=== PATIENT | female | born 1935 | race Hispanic/Latino ===

== ENCOUNTER 2017-05-17 14:35 | Emergency (ER) | payer OTHER ==
[2017-05-17 15:47] LABS: BASOPHILS % (AUTO) 0.6 % (0.0-5.0); EOSINOPHILS % (AUTO) 1.7 % (0.0-8.0); HEMATOCRIT 41.9 % (36-48); LYMPHOCYTES % (AUTO) 35.8 % (21.0-51.0); MEAN CORPUSCULAR HEMOGLOBIN 30.7 pg (27.0-33.0); MEAN CORPUSCULAR HGB CONC 34.1 g/dL (32.0-36.0); MEAN CORPUSCULAR VOLUME 90.1 fL (79-99); NEUTROPHILS % (AUTO) 51.9 % (40.0-77.0); PLATELET COUNT (AUTO) 205 K/uL (130-400); RED BLOOD CELL COUNT(AUTO) 4.65 MIL/uL (4.00-5.50); RED CELL DISTRIBUTION WIDTH 12.7 % (11.0-15.5)
[2017-05-17 15:56] LABS: CREATININE 0.7 mg/dL (0.5-1.5); INR 0.93 (0.85-1.15); PARTIAL THROMBOPLASTIN TIME 26.2 SEC (26.3-35.5); POTASSIUM 3.9 mmol/L (3.5-5.1); PROTHROMBIN TIME 9.8 SEC (9.6-11.6)
[2017-05-17 16:00] LABS: ALBUMIN 3.9 g/dL (3.5-5.0); BILIRUBIN,TOTAL 0.4 mg/dL (0.2-1.0); TOTAL PROTEIN, SERUM 7.6 g/dL (6.0-8.3)
== END 2017-05-17 17:26 | disposition home or self-care (01) ==
LOC: EDH 14:35
DX: S40.012A Contusion of left shoulder, initial encounter (principal); S09.8XXA Other specified injuries of head, initial encounter; R42 Dizziness and giddiness; Z88.5 Allergy status to narcotic agent; W06.XXXA Fall from bed, initial encounter; Y93.89 Activity, other specified; Y92.89 Other specified places as the place of occurrence of the external cause; Y99.8 Other external cause status
CPT/HCPCS: 36415; 70450; 73030; 80053; 85025; 85610; 85730; 93005

== ENCOUNTER 2022-08-01 13:32 | Inpatient (IN) | payer MEDICARE, OTHER ==
[~2022-08-01] VITALS: Ht 165.1 cm; Wt 67.1 kg
[2022-08-01 13:58] LABS: BASOPHILS % (AUTO) 0.3 % (0.0-5.0); EOSINOPHILS % (AUTO) 1.3 % (0.0-8.0); HEMATOCRIT 41.3 % (36-48); LYMPHOCYTES % (AUTO) 35.1 % (21.0-51.0); MEAN CORPUSCULAR HEMOGLOBIN 30.4 pg (27.0-33.0); MEAN CORPUSCULAR HGB CONC 33.7 g/dL (32.0-36.0); MEAN CORPUSCULAR VOLUME 90.4 fL (79-99); MONOCYTES % (AUTO) 6.8 % (3.0-13.0); NEUTROPHILS % (AUTO) 56.2 % (40.0-77.0); PLATELET COUNT (AUTO) 217 K/uL (130-400); RED BLOOD CELL COUNT(AUTO) 4.57 MIL/uL (4.00-5.50); RED CELL DISTRIBUTION WIDTH 12.9 % (11.0-15.5); WHITE BLOOD COUNT (AUTO) 6.9 K/uL (4.8-10.8)
[2022-08-01] MEDS ORDERED: ASPIRIN 81MG CHEW TAB PO ONE (14:00)
[2022-08-01 14:07] LABS: POTASSIUM 3.6 mmol/L (3.5-5.1)
[2022-08-01 14:13] LABS: ALBUMIN 4.4 g/dL (3.5-5.0); TOTAL PROTEIN, SERUM 7.7 g/dL (6.0-8.3)
[2022-08-01 14:24] LABS: APPEARANCE,URINE CLEAR (CLEAR); BILIRUBIN,URINE NEGATIVE (NEGATIVE); COLOR,URINE LIGHT-YELLOW (YELLOW); GLUCOSE, URINE (UA) NEGATIVE (NEGATIVE); KETONES,URINE 5 mg/dL (NEGATIVE); LEUKOCYTE ESTERASE ,URINE 25 Leu/uL (NEGATIVE); NITRATE,URINE NEGATIVE (NEGATIVE); OCCULT BLOOD,URINE NEGATIVE (NEGATIVE); PROTEIN,URINE NEGATIVE (NEGATIVE); UROBILINOGEN,URINE 0.2 mg/dL (0.2-1.0)
[2022-08-01 14:32] LABS: MUCUS,URINE RARE LPF (None Seen); RBC,URINE 0-1 /HPF (0-1); SQUAMOUS EPITHELIAL CELL,UR RARE /HPF (0-2); WBC,URINE 0-1 /HPF (0-1)
[2022-08-01] MEDS ORDERED: CLOPIDOGREL 300MG TAB PO SCH (15:00)
[2022-08-01] MEDS ORDERED: ENOXAPARIN SODIUM 60 MG/0.6 ML SQ SCH (15:00)
[2022-08-01] MEDS ORDERED: ONDANSETRON 4MG INJ IV PRN (18:00)
[2022-08-01] MEDS ORDERED: ACETAMINOPHEN 325 MG TAB PO PRN ×2 (18:00)
[2022-08-01] MEDS: FAMOTIDINE 20MG VIAL IV SCH (18:31)
[2022-08-01] MEDS: NITROGLYCERIN 1GM OINT 1 INCH/1GM TD SCH (18:31)
[2022-08-01] MEDS: METOPROLOL TARTRATE 25 MG TAB PO SCH (20:34)
[2022-08-01] MEDS ORDERED: 0.9% NACL 500ML IV.SOLN 500 ML IV SCH (21:30)
[2022-08-01] MEDS: ATORVASTATIN 40 MG TABLET PO SCH (23:08)
[2022-08-01] MEDS: LOSARTAN 50 MG TABLET PO SCH (23:09)
[2022-08-01 23:19] VITALS: BP 116/93
[2022-08-01 23:59] VITALS: BP 116/93
[2022-08-02] VITALS (12 sets, daily range): BP systolic 88–162; BP diastolic 54–93
[2022-08-02 02:00] LABS: BASOPHILS % (AUTO) 0.3 % (0.0-5.0); EOSINOPHILS % (AUTO) 1.9 % (0.0-8.0); HEMATOCRIT 36.5 % (36-48); LYMPHOCYTES % (AUTO) 29.5 % (21.0-51.0); MEAN CORPUSCULAR HEMOGLOBIN 30.2 pg (27.0-33.0); MEAN CORPUSCULAR HGB CONC 33.4 g/dL (32.0-36.0); MEAN CORPUSCULAR VOLUME 90.3 fL (79-99); MONOCYTES % (AUTO) 9.8 % (3.0-13.0); NEUTROPHILS % (AUTO) 58.2 % (40.0-77.0); PLATELET COUNT (AUTO) 191 K/uL (130-400); RED BLOOD CELL COUNT(AUTO) 4.04 MIL/uL (4.00-5.50); RED CELL DISTRIBUTION WIDTH 12.9 % (11.0-15.5); WHITE BLOOD COUNT (AUTO) 5.9 K/uL (4.8-10.8)
[2022-08-02] MEDS: NITROGLYCERIN 1GM OINT 1 INCH/1GM TD SCH ×3 (02:00→18:00)
[2022-08-02 02:17] LABS: INR 0.96 (0.85-1.15); PROTHROMBIN TIME 10.5 SEC (9.6-11.6)
[2022-08-02 02:18] LABS: PARTIAL THROMBOPLASTIN TIME 29.6 SEC (26.3-35.5)
[2022-08-02 02:24] LABS: ALBUMIN 3.6 g/dL (3.5-5.0); CREATININE 0.8 mg/dL (0.5-1.5); MAGNESIUM 2.3 mg/dL (1.80-2.40); POTASSIUM 3.8 mmol/L (3.5-5.1); TOTAL PROTEIN, SERUM 6.6 g/dL (6.0-8.3)
[2022-08-02] MEDS ORDERED: HEPARIN 25,000 UNITS/250ML D5W 250 ML IV SCH (08:30)
[2022-08-02] MEDS: METOPROLOL TARTRATE 25 MG TAB PO SCH ×2 (09:00→19:58)
[2022-08-02] MEDS: LOSARTAN 50 MG TABLET PO SCH (10:00)
[2022-08-02] MEDS: ASPIRIN 81 MG EC TAB PO SCH (10:00)
[2022-08-02] MEDS: FAMOTIDINE 20MG VIAL IV SCH (10:00)
[2022-08-02] MEDS: CLOPIDOGREL 75MG TAB PO SCH (10:01)
[2022-08-02 10:40] LABS: INR 0.96 (0.85-1.15); PROTHROMBIN TIME 10.5 SEC (9.6-11.6)
[2022-08-02 10:41] LABS: PARTIAL THROMBOPLASTIN TIME 27.7 SEC (26.3-35.5)
[2022-08-02] MEDS ORDERED: HEPARIN 5,000 UNIT VIAL ONE (11:00)
[2022-08-02] MEDS ORDERED: LIDOCAINE HCL 400MG/20ML VIAL ONE (11:52)
[2022-08-02] MEDS ORDERED: FENTANYL CITRATE PF 50 MCG/1 ML 2ML VIAL ONE (11:53)
[2022-08-02] MEDS ORDERED: MIDAZOLAM HCL 1 MG/ML 2ML VIAL ONE (11:53)
[2022-08-02] MEDS ORDERED: HEPARIN 10,000 UNIT/10ML (1,000 UNIT/ML) VIAL ONE (11:53)
[2022-08-02] MEDS ORDERED: VERAPAMIL HCL 2.5 MG/ML VIAL ONE ×2 (11:53→13:08)
[2022-08-02] MEDS ORDERED: IOHEXOL 350 MG/ML 100ML INFUS..BTL IV ONE ×3 (11:53→13:46)
[2022-08-02] MEDS ORDERED: NITROGLYCERIN 50MG VIAL ONE (11:53)
[2022-08-02] MEDS ORDERED: IOHEXOL-350 50ML VIAL IV ONE (15:37)
[2022-08-02] MEDS ORDERED: ONDANSETRON 4MG INJ IVP SCH (16:00)
[2022-08-02] MEDS ORDERED: 0.9%NACL 1000ML 1,000 ML IV SCH (16:00)
[2022-08-02] MEDS ORDERED: ONDANSETRON 4MG INJ IVP PRN (16:00)
[2022-08-02] MEDS ORDERED: NITROGLYCERIN 50MG/D5W 250ML 1 BOT IV PRN (16:00)
[2022-08-02] MEDS ORDERED: TEMAZEPAM 30 MG CAP PO PRN (16:00)
[2022-08-02] MEDS ORDERED: ACETAMINOPHEN WITH CODEINE 1 TAB TAB PO PRN ×2 (16:00)
[2022-08-02] MEDS ORDERED: MORPHINE 5 MG/ML VIAL (5MG OR GREATER DOSE) IVP SCH (17:00)
[2022-08-02] MEDS ORDERED: MORPHINE 4 MG SYG IVP SCH (17:00)
[2022-08-02] MEDS ORDERED: CLOPIDOGREL 300MG TAB PO SCH (17:00)
[2022-08-02] MEDS: ATORVASTATIN 40 MG TABLET PO SCH (19:58)
[2022-08-03] MEDS: NITROGLYCERIN 1GM OINT 1 INCH/1GM TD SCH ×2 (03:55→13:01)
[2022-08-03 04:24] VITALS: BP 145/57
[2022-08-03 04:35] LABS: HEMATOCRIT 38.2 % (36-48); MEAN CORPUSCULAR HEMOGLOBIN 29.8 pg (27.0-33.0); MEAN CORPUSCULAR HGB CONC 32.7 g/dL (32.0-36.0); MEAN CORPUSCULAR VOLUME 91.2 fL (79-99); RED BLOOD CELL COUNT(AUTO) 4.19 MIL/uL (4.00-5.50); RED CELL DISTRIBUTION WIDTH 12.8 % (11.0-15.5); WHITE BLOOD COUNT (AUTO) 7.2 K/uL (4.8-10.8)
[2022-08-03 04:49] LABS: CREATININE 0.8 mg/dL (0.5-1.5); POTASSIUM 3.8 mmol/L (3.5-5.1)
[2022-08-03 08:00] VITALS: BP 112/60
[2022-08-03] MEDS ORDERED: ATOR40TA69 PO (08:45)
[2022-08-03] MEDS ORDERED: AEC81 PO (08:45)
[2022-08-03] MEDS ORDERED: PANT40TA PO (08:45)
[2022-08-03] MEDS ORDERED: CLOP-31 PO (08:45)
[2022-08-03] MEDS ORDERED: LOSA50TA2 PO (08:45)
[2022-08-03] MEDS ORDERED: CLOPIDOGREL 75MG TAB PO SCH (09:00)
[2022-08-03] MEDS ORDERED: ASPIRIN 81MG CHEW TAB PO SCH (09:00)
[2022-08-03] MEDS ORDERED: PANTOPRAZOLE 40 MG TAB DR PO SCH (09:00)
[2022-08-03] MEDS ORDERED: METO25TA3 PO (09:45)
[2022-08-03] MEDS: ASPIRIN 81 MG EC TAB PO SCH (09:56)
[2022-08-03] MEDS: LOSARTAN 50 MG TABLET PO SCH (09:56)
[2022-08-03] MEDS: METOPROLOL TARTRATE 25 MG TAB PO SCH (09:56)
[2022-08-03] MEDS: CLOPIDOGREL 75MG TAB PO SCH (09:57)
[2022-08-03 11:47] VITALS: BP 101/47
== END 2022-08-03 14:10 | disposition home or self-care (01) | DRG 246 ==
LOC: EDH 13:32 → EDHIP 17:43 → 4AH 21:42 → 4CH 22:59
PROVIDERS: ADMIT Internal Medicine; ATTEND Internal Medicine
PROC: 027135Z Dilation of Coronary Artery, Two Arteries with Two Drug-eluting Intraluminal Devices, Percutaneous Approach (ICD-10-PCS; principal; 2022-08-02)
PROC: 4A023N7 Measurement of Cardiac Sampling and Pressure, Left Heart, Percutaneous Approach (ICD-10-PCS; 2022-08-02)
PROC: B2111ZZ Fluoroscopy of Multiple Coronary Arteries using Low Osmolar Contrast (ICD-10-PCS; 2022-08-02)
PROC: B240ZZ3 Ultrasonography of Single Coronary Artery, Intravascular (ICD-10-PCS; 2022-08-02)
DX: I21.4 Non-ST elevation (NSTEMI) myocardial infarction (principal); U07.1 COVID-19; I45.2 Bifascicular block; I11.9 Hypertensive heart disease without heart failure; E78.5 Hyperlipidemia, unspecified; I25.10 Atherosclerotic heart disease of native coronary artery without angina pectoris; Z79.899 Other long term (current) drug therapy
CPT/HCPCS: 36415; 71045; 80048; 80053; 81001; 82550; 83735; 83874; 84484; 85025; 85027; 85610; 85730; 87635; 92978; 93005; 93306; 93356; 93458; 99156; 99157; 99291; C1769; C1887; C9600; G0378; J1644; J1650; J2250; J3010; J3490; Q9967

== ENCOUNTER → 2022-10-03 | Outpatient (CLI) | payer MEDICARE ==
[~2022-10-03] MED LIST: AEC81 PO; ATOR40TA69 PO; CLOP-31 PO; LOSA-418 PO; METO25TA3 PO; PANT40TA PO
[2022-10-03 12:35] LABS: CHOLESTEROL 133 mg/dL (<200); HDL CHOLESTEROL 61 mg/dL (35-85); LDL DIRECT 60 mg/dL (0-99); TRIGLYCERIDES 55 mg/dL (30-200)
== END | disposition home or self-care (01) ==
LOC: LAB 09:00
PROVIDERS: ATTEND Internal Medicine Cardiovascular Disease
DX: E78.5 Hyperlipidemia, unspecified (principal)
CPT/HCPCS: 36415; 80061